=== PATIENT | female | born 1990 | race Hispanic/Latino ===

== ENCOUNTER 2019-10-23 11:40 | Outpatient (CLI) | payer BC, SELFPAY ==
[2019-10-23 15:16] LABS: Rheumatoid Factor 14.3 IU/ML (<12)
[2019-10-23 15:20] LABS: CRP 5.6 mg/dL (<1.0); Creatine Kinase 76 U/L (30-135); Lactate Dehydrogenase 346 U/L (313-618)
[2019-10-23 15:30] LABS: Erythrocyte Sedimentation Rate 28 mm/hr (0-20)
[2019-10-25 12:11] LABS: Aldolase 3.3 U/L (<=8.1)
[2019-10-26 10:46] LABS: Anti Cyclic Citrullinated Pept <16 Units (<20)
== END 2019-10-23 11:41 | disposition home or self-care (01) ==
PROVIDERS: Visit Provider Internal Medicine
DX: M19.90 Unspecified osteoarthritis, unspecified site (principal)
CPT/HCPCS: 36415; 82085; 82550; 83615; 85652; 86140; 86200; 86430

== ENCOUNTER 2019-10-23 13:09 | Outpatient (CLI) | payer BC, SELFPAY ==
--- NOTE | ~2019-10-23 | XR_ITS ---
XR hand BI arthritis min 3V 10/23/2019 13:32 Indication: Bilateral hand osteoarthritis Procedure: 4 views of each hand Comparison: No prior studies for comparison. Findings: There are mild degenerative changes of the right first MCP and IP joints. There is mild ost eoarthritis of the left MCP joint. Normal mineralization. No fracture or traumatic malalignment. No e rosive changes. No foreign bodies. Impression: 1: Mild polyarticular osteoarthritis. Reviewed, dictated and finalized at location A. L INSTALLER Impression: 1: Mild polyarticular osteoarthritis.
--- NOTE | ~2019-10-23 | XR_ITS ---
XR sacroiliac joints min 3V 10/23/2019 13:32 Indication: Osteoarthritis. Sacroiliac joint pain. Procedure: 3 views of the sacroiliac joints Comparison: No prior studies for comparison. Findings: Sacroiliac joints are symmetric. Sacral foramen are symmetric. No significant degenerative joint disease. Visualized aspects of the lower lumbar spine are unremarkable. Impression: 1: No significant abnormality of the sacroiliac joints. Reviewed, dictated and finalized at location A. PRODUCTION FIELD SUPERVISOR Impression: 1: No significant abnormality of the sacroiliac joints.
--- NOTE | ~2019-10-23 | XR_ITS ---
XR foot RT standing 2V, XR foot LT standing 2V 10/23/2019 13:32 Indication: Osteoarthritis. Foot pain. Procedure: 2 views of each foot Comparison: No prior studies for comparison. Findings: There is osteoarthritis of the first MTP joints bilaterally, right greater than left. Mild right hallux valgus. Lisfranc joint intact bilaterally. No acute fracture or traumatic malalignment. No focal soft tissue abnormality. No foreign bodies. 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 Reviewed, dictated and finalized at location A. 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
== END 2019-10-23 13:10 | disposition home or self-care (01) ==
LOC: ANHIMG 13:13
PROVIDERS: Visit Provider Internal Medicine
DX: M19.90 Unspecified osteoarthritis, unspecified site (principal); M19.042 Primary osteoarthritis, left hand; M19.041 Primary osteoarthritis, right hand; M19.072 Primary osteoarthritis, left ankle and foot; M19.071 Primary osteoarthritis, right ankle and foot
CPT/HCPCS: 72202; 73130; 73620

== ENCOUNTER 2019-12-03 10:07 | Outpatient (CLI) | payer BC, SELFPAY ==
[2019-12-03 12:30] LABS: CRP < 0.5 mg/dL (<1.0)
[2019-12-03 12:44] LABS: Erythrocyte Sedimentation Rate 35 mm/hr (0-20)
[2019-12-07 10:01] LABS: ANCA Screen Negative (Negative); Myeloperoxidase Ab <1.0 AI (<1.0); Proteinase-3 Ab <1.0 AI (<1.0); S cerevisiae Ab (IgA) 4.8 U (<=20.0); S cerevisiae Ab (IgG) 11.5 U (<=20.0)
== END 2019-12-03 10:08 | disposition home or self-care (01) ==
PROVIDERS: Visit Provider Internal Medicine
DX: M19.90 Unspecified osteoarthritis, unspecified site (principal)
CPT/HCPCS: 36415; 85652; 86021; 86140; 86671

== ENCOUNTER 2024-12-11 08:50 | Outpatient (CLI) | payer BC, SELFPAY ==
--- NOTE | ~2024-12-11 | CT_ITS ---
Non-contrast Head CT History: Migraine Technique: Axial non-contrast imaging of the brain was performed. Dose reduction technique was used on this scan by utilizing automated exposure control and iterative reconstruction technique. The dose -length product (DLP) was 645.69 mGy-cm. Findings: There is no evidence of intracranial hemorrhage, mass lesion, or acute infarct. Brain par enchyma appears normal. The ventricles and subarachnoid spaces are normal in size. The calvarium ap pears normal. The visualized paranasal sinuses and mastoid air cells are clear. Impression: No significant abnormality seen. Reviewed, dictated and finalized at location . Impression: No significant abnormality seen.
== END 2024-12-11 08:51 | disposition home or self-care (01) ==
PROVIDERS: PCP Nurse Practitioner Family; Visit Provider Nurse Practitioner Family
DX: G43.909 Migraine, unspecified, not intractable, without status migrainosus (principal); R26.89 Other abnormalities of gait and mobility; H53.2 Diplopia
CPT/HCPCS: 70450

== ENCOUNTER 2024-12-11 09:12 | Outpatient (CLI) | payer BC, SELFPAY ==
--- OUTSIDE RECORDS SUMMARY | 2024-12-11 09:54 | XMS_ITS | Clinical Summary ---
Author Organization [facility] Address [address] [place] [address] Care Team Providers Care Casing Worker Name Role Phone Mariposa Honyecutt TRAFFIC LINE PAINTER Primary Care Provider Unavaila ble Allergies No known active allergies Medications pantoprazole EC 20 MG tabletIndications:G astroesophageal reflux disease without esophagitis Take 1 tablet (20 mg total) by mouth daily. 30 tablet 1 9 Active fluticasone propionate (FLONASE) 50 MCG/ACT nasal sprayIndications:Dy sfunction of both eustachian tubes 2 sprays by Nasal route daily. 9 Active magnesium 250 MG tabletIndications:C hronic nonintractable headache, unspecified headache type Take 1 tablet (250 mg total) by mouth daily. 30 tablet 9 Active Active Problems Problem Noted Date Diagnosed Date 40 weeks gestation of ([facility]) 2018 Vaginal delivery ([facility]) 03/30/2019 Arthralgia of both hands 03/30/2019 Fatigue, unspecified type 03/30/2019 Gastroesophageal reflux disease without esophagi tis 03/30/2019 Chronic abdominal pain 03/30/2019 Overview (03/30/2019): will try PPI and refer to GI if no improvment Dysfunction of both eustachian tubes 03/30/2019 Overview (03/30/2019): flonase and will refer to ENT if no improvement Chronic nonintractable headache, unspecified hea dache type 03/30/2019 Overview (03/30/2019): most likely due to stress no red flags Stress 03/30/2019 Overview (03/30/2019): encouraged her to try and start with 1-2 hours of relief from kids weekly to do something she enjoys: working out, friends need for decrease stress Group B streptococcal infection during ([facility]) 05/15/2018 Vitamin D deficiency 01/09/2018 Low vitamin D level 01/04/2018 Normal labor and delivery ([facility]) 03/26/2017 Immunizations Name Administration Dates Next Due Tdap (Generic) 09/08/2014 Family History Medical History Relation Comments Cancer Father Diabetes Father Hypertension Father Relation Status Comments Father Social History Tobacco Use Types Packs/Day Years Used Date Smoking Tobacco: Never Smokeless Tobacco: Never Alcohol Use Standard Drinks/Week Comments No 0 (1 standard drink = 0.6 oz pur e alcohol) AUDIT-C Answer Date Recorded Frequency of Alcohol Consumption Never 03/30/2019 Average Number of Drinks Not on file 019 Frequency of Binge Drinking Not on file 01/2019 PHQ-2 Answer Date Recorded PHQ-2 Score 0 09/04/2019 Comments No Sex and Gender Information Value Date Recorded Sex Assigned at Not on file Legal Sex Female 8:56 AM CDT Gender Identity Not on file Sexual Orientation Not on file Last Filed Vital Signs Vital Sign Reading Time Taken Comments Blood Pressure 116/64 03/30/2019 11:21 AM CDT Pulse 58 03/30/2019 11:21 AM CDT Temperature 36.8 C (98.3 F) 03/30/2019 11:21 AM CDT Respiratory Rate 14 03/30/2019 11:21 AM CDT Oxygen Saturation 99% 03/30/2019 11:21 AM CDT Inhaled Oxygen Concentration - - Weight 67.6 kg (149 lb) 03/30/2019 11:21 AM CDT Height 165.1 cm (5' 5 ) 03/30/2019 11:21 AM CDT Body Mass Index 24.79 03/30/2019 11:21 AM CDT Plan of Treatment Health Maintenance Due Date Last Done Comments Annual Physical 11/30/1991 Hepatitis C 2006 Hepatitis B Vaccines (1 of 3 - 19+ 3-dose series) 11/30/2007 Cervical Cancer Screening Pa p with HPV Testing (Age 30 to 64) Every 5 Years 2018 Cervical Cancer Screening Pa p Smear (Age 30 to 64) Every 3 Years 03/20/2023 03/20/2020 Cervical Cancer Screening with HPV 03/20/2023 COVID-19 Vaccine (2023-2 5 season) 2024 Influenza Adult (#1) 2024 DTaP, Tdap and Td Vaccines ( 2 - Td or Tdap) 09/08/2024 09/08/2014 HPV Vaccines Aged Out No longer eligi ble based on patient's age to complete this topic Meningococcal B Vaccine Aged Out No l onger eligible based on patient's age to complete this topic Meningococcal Vaccine Aged Out No unique vera eligible based on patient's age to complete this topic Pneumococcal Vaccine: Pediat rics (0 to 5 Years) and At-Risk Patients (6 to 64 Years) Aged Out No longer eligi ble based on patient's age to complete this topic RSV Immunizations Under 20 Months Aged Out No longer eligible based on patient's age to complete this topic Procedures Procedure Name Priority Date/Time Associated Diagnosis Comments OUTSIDE CYTOPATH CERV/VAG IN TERPRET (PAP) (SCAN ORDER) 03/20/2020 from Last 3 Months or Most Recently Relevant to Health Maintenance Results * PAP SMEAR (03/20/2020) 03/20/2020 [facility] Scanned SCANNING Final Resu lt from Last 3 Months or Most Recently Relevant to Health Maintenance Insurance [facility] Care Teams Casing Worker Relationship Specialty Start Date End Date Mariposa Honeycutt NP PCP - General NURSE PRACTITIONER 03/30/19
--- OUTSIDE RECORDS SUMMARY | 2024-12-11 09:54 | XMS_ITS | Referral Summary ---
Author Organization [facility] Address [address] [place] [address] Care Team Providers Care Wire Annealer Name Role Phone Quincy Suarez MD Primary Care Provider [phone] Allergies No known active allergies Medications vitamin ferrous fumarate-folic () 28 mg iron- 800 mcg tablet Take 1 tablet by mouth daily 30 tablet 11 3 Active cholecalciferol (VITAMIN D-3) 5,000 unit capsule Take one capsule daily with food. 30 capsule 7 3 Active ferrous fumarate-vitami n C 200 mg (65 mg iron)-25 mg tablet Take 1 tablet by mouth daily 30 tablet 11 3 Active docusate sodium (COLACE) 100 mg capsuleIndicati ons:constipatio n Take 1 capsule (100 mg total) by mouth 2 (two) times a day 60 capsule 11 3 Active acetaminophen (TYLENOL) 325 mg tablet Take 2 tabs orally every 4 hours as needed for pain 3 Active ibuprofen (ADVIL,MOTRIN) 200 mg tab/capIndicati ons:Pain Take 2 tabs orally every 4 hours as needed for pain. 3 Active hydrocortisone 2.5 % cream Apply topically 2 (two) times a day 30 g 3 Active butalbital-acet aminophen-caffe ine (ESGIC) 50-325-40 mg per tablet Take 1 tablet by mouth every 4 (four) hours as needed for headaches 30 tablet 3 Active Active Problems Problem Noted Date Diagnosed Date with 41 completed weeks gestation 03/27 Anemia affecting in first trimester Endocervical polyp 10/03/2022 Overview (10/03/2022): Residual, 2 small at NOB s/p removal earlier in year; plan recheck. Chronic migraine without aur a without status migrainosus, not intractable 11/12/2021 Vitamin D deficiency 01/09/2018 Low vitamin D level 01/04/2018 Resolved Problems Problem Noted Date Diagnosed Date Resolved Date Group B streptococcal infect ion during 05/15/2018 10/01/2022 Vaginal delivery 10/01/2022 40 weeks gestation of 10/01/2022 Social History Tobacco Use Types Packs/Day Years Used Date Smoking Tobacco: Never Smokeless Tobacco: Never Tobacco Cessation:Counseling Given: Not Answered Alcohol Use Standard Drinks/Week Comments Yes 0 (1 standard drink = 0.6 oz pur e alcohol) occasionally Social Connection and Isolat ion Panel [NHANES] Answer Date Recorded In a typical week, how many times do you talk on the phone with family, friends, or neighbors? More than three times a week 04/22/2023 How often do you get togethe r with friends or relatives? More than three times a week 04/22/2023 How often do you attend chur ch or adventism services? More than 4 times per year 04/22/2023 Do you belong to any clubs o r organizations such as jew groups, unions, fraternal or athletic groups, or school groups? No 04/22/2023 How often do you attend meet ings of the clubs or organizations you belong to? Never 04/22/2023 Are you , , di vorced, , never , or living with a partner? 04/22/2023 AUDIT-C Answer Date Recorded Q1: How often do you have a drink containing alcohol? Never 04/26/2023 Q2: How many drinks containi ng alcohol do you have on a typical day when you are drinking? Patient does not drink Q3: How often do you have si x or more drinks on one occasion? Never 04/26/2023 Overall Financial Resource Strain (CARDIA) Answe r Date Recorded How hard is it for you to pa y for the very basics like food, housing, medical care, and heating? Not hard at all 04/22/2023 PHQ-2 Answer Date Recorded PHQ-2 Total Score (If total score is 3 or more points, staff should administer the PHQ-9) 0 04/22/2023 [facility] - Occupational Stress Questionnaire Answer Date Recorded Do you feel stress - tense, restless, nervous, or anxious, or unable to sleep at night because your mind is troubled all the time - these days? Not at all 04/22/2023 Exercise Vital Sign Answer Date Recorde d On average, how many days pe r week do you engage in moderate to strenuous exercise (like a brisk walk)? 4 days 04/22/2023 On average, how many minutes do you engage in exercise at this level? 120 min 04/22/2023 Hunger Vital Sign Answer Date Recorded Within the past 12 months, y ou worried that your food would run out before you got the money to buy more. Never true 04/22/20 23 Within the past 12 months, t he food you bought just didn't last and you didn't have money to get more. Never true 04/22/2023 PRAPARE - Transportation Answer Date Re corded In the past 12 months, has l ack of transportation kept you from medical appointments or from getting medications? No 03/27 In the past 12 months, has l ack of transportation kept you from meetings, work, or from getting things needed for daily living? No 04/22/2023 Housing Stability Vital Sign Answer Bunny e Recorded In the last 12 months, was t here a time when you were not able to pay the mortgage or rent on time? No 04/22/2023 In the last 12 months, how many places have you lived? 1 04/22/2023 In the last 12 months, was t here a time when you did not have a steady place to sleep or slept in a jail (including now)? No 04/22/2023 Personal Safety Answer Date Recorded Have you ever been in or are you currently in a harmful physical or emotional relationship or is someone making you feel afraid or unsafe? Denies 04/26/2023 Comments No Sex and Gender Information Value Date Recorded Sex Assigned at Not on file Legal Sex Female 8:34 PM EMERGENCY MEDICAL TECHNICIAN Gender Identity Not on file Sexual Orientation Not on file Last Filed Vital Signs Vital Sign Reading Time Taken Comments Blood Pressure 134/80 07/14/2023 12:39 PM CDT Pulse 84 07/14/2023 12:39 PM CDT Temperature 36.2 C (97.1 F) 04/26/2023 11:57 AM CDT Respiratory Rate 18 07/14/2023 12:39 PM CDT Oxygen Saturation 100% 07/14/2023 12:39 PM CDT Inhaled Oxygen Concentration - - Weight 68.9 kg (152 lb) 07/14/2023 12:39 PM CDT Height 165.1 cm (5' 5 ) 07/14/2023 12:39 PM CDT Body Mass Index 25.29 07/14/2023 12:39 PM CDT Plan of Treatment Not on file Procedures Procedure Name Priority Date/Time Associated Diagnosis Comments HEPATITIS C ANTIBODY Routine 10/05/2022 10:21 AM EMERGENCY MEDICAL TECHNICIAN Supervision of other normal , antepartum PAP AND HIGH RISK HPV, REFLEX TO GENOTYPING Routine 10/01/2022 3:29 PM EMERGENCY MEDICAL TECHNICIAN Supervision of other normal , antepartum 12 weeks gestation of from Last 3 Months or Most Recently Relevant to Health Maintenance Results * Hepatitis C antibody (10/05/2022 10:21 AM EMERGENCY MEDICAL TECHNICIAN) Hep C Ab Nonreactive Nonreactive [facility] ([facility]) Comment: Interpretive Data Nonreactive: Antibodies to HCV not detected. Does NOT exclude the possibility of recent exposure to HCV. Equivocal: Equivocal for HCV antibodies. Supplemental molecular testing will be automatically performed to determine infection status in accordance with current CDC screening recommendations. Reactive: Positive for HCV antibodies. This may represent current or past HCV infection. Supplemental molecular testing will be automatically performed to determine current infection status in accordance with current CDC screening recommendations. Interpretive data was last revised on 2019. Testing performed by: [facility], [address] [place] [address], [place]., [address] Blood 10/05/2022 10:2 1 AM EMERGENCY MEDICAL TECHNICIAN 10/05/2022 8:39 PM EMERGENCY MEDICAL TECHNICIAN Rickey Barraza MD LAB MICROBIOLOGY - GENERAL ORDERABLES Final Result Performing Organization Address City/[facility] Co de Phone Number [facility] [place]) 1 [facility] Department [place] [address] * Pap and High Risk HPV, reflex to Genotyping (10/01/2022 3:29 PM EMERGENCY MEDICAL TECHNICIAN) CLINICAL INFORMATION: [facility] Comment: LMP [facility] Comment:06-12-22 Previous Pap [employer] [facility] Comment:NONE GIVEN Prev. Bx [facility] Comment:NONE GIVEN SOURCE: [facility] Comment:Cervix, Endocervix Pap, specimen adequacy [facility] Comment: Satisfactory for evaluation. Endocervical/transformation zone component present. HPV interp [facility] Comment:Negative for intraep ithelial lesion or malignancy. [facility] Comment: PCM, CT(ASCP) CT Screening Location: [place] [address] [place] [address] Comment [facility] Comment: EXPLANATORY NOTE: The Pap is a screening test for cervical cancer. It is not a diagnostic test and is subject to false negative and false positive results. It is most reliable when a satisfactory sample, regularly obtained, is submitted with relevant clinical findings and history, and when the Pap result is evaluated along with historic and current clinical information. Human papillomavirus DNA, High Risk E6/E7 Not Detected NOT DETECTED [facility] [place] Comment: Not Detected High Risk HPV types (16,18,31,33,35,39,45,51,52, 56,58,59,66,68) were not detected. Other HPV types which cause anogenital lesions may be present. The significance of the other types of HPV in malignant processes has not been established. Methodology: Real Time PCR Thin prep (None) 10/01/2022 3:29 PM EMERGENCY MEDICAL TECHNICIAN 10/04/2022 7:46 AM EMERGENCY MEDICAL TECHNICIAN Rickey Barraza MD LAB CYTOLOGY ORDERABLES Fi nal Result Performing Organization Address City/[facility]/ZIP Co de Phone Number [facility] [address] [place] [address] [facility]/[place] [address] [address] [place] [address] from Last 3 Months or Most Recently Relevant to Health Maintenance Insurance [employer] [place] Advance Directives For more information, please contact: [phone] * Full Code (Latest Code Status on File) Date Activated Date Inactivated Comments 04/22/2023 6:27 AM 04/24/2023 8:07 PM Full CPR in case of cardiopulmonary arrest * Full Code Date Activated Date Inactivated Comments 06/19/2018 11:25 AM 06/21/2018 3:38 PM Full CPR in case of cardiopulmonary arrest Care Teams Wire Annealer Relationship Specialty Start Date End Date Quincy Suarez MD [address] [address] PCP - General 01/01/21
--- OUTSIDE RECORDS SUMMARY | 2024-12-11 09:54 | XMS_ITS | Clinical Summary ---
Author Organization [facility] Address [address] [place] [address] Care Team Providers Care Elevator Service Mechanic Name Role Phone Quincy Suarez MD Primary Care Provider [phone] Allergies No known active allergies Medications vitamin [...] delivery 10/01/2022 40 weeks gestation of 10/01/2022 Surgical History Surgery Date Site/Laterality Comments OTHER SURGICAL HISTORY 09/26/2013 - 09/25/2014 : VAGINAL DELIVERY 03/26/2017 BREAST SURGERY 01/24/2021 - 02/23/2021 Breast implants removed Medical History Medical History Date Comments Hx Other Medical ; Outc ome: 7lb(s) 10 oz Male Abnormal Pap smear of cervix 08/27/2016 LSI L Family History Medical History Relation Name Comments Breast cancer Maternal Great-Grandmother Relation Name Status Comments Maternal Great-Grandmother Social History Tobacco Use Types Packs/Day Years [...] often do you attend chur ch or yarsani services? More than 4 times per year 04/22/2023 Do you belong to any clubs o r organizations such as uatsdin groups, unions, fraternal or athletic groups, or [...] staff should administer the PHQ-9) 0 04/22/2023 [facility] - Occupational Stress Questionnaire Answer Date Recorded [...] place to sleep or slept in a alf (including now)? No 04/22/2023 Personal Safety Answer Date Recorded Have you ever been in or are you currently in a harmful physical or emotional relationship or is someone making you feel afraid or unsafe? Denies 04/26/2023 Comments No Sex and Gender Information Value Date Recorded Sex Assigned at Not on file Legal Sex Female 8:34 PM SIMULATION SPECIALIST Gender Identity Not on file Sexual Orientation Not on file Obstetrics History Para Term AB IAB SAB Ectopic Multiple Livin g Live Births 4 4 4 0 0 0 0 0 0 4 4 Date Outcome GA Total Labor Labor/2nd/3rd Weight Sex Type Anes PTL Love A1 A5 Name Clin 4 Term 39w 0d 3.402 kg (7 lb 8 oz) M Vag-Sp ont Livin g 2016 Term 3.544 kg (7 lb 13 oz) F Vag-Sp ont Epidur al Livin g 2017 Term 40w 6d 10h 16m 10h 01m/0h 15m 3.404 kg (7 lb 8.1 oz) F Vag-Sp ont None N Livin g 8 9 IDANIA BURGOS,Jimmy Murillo MD Complications:None Delivery Location:[facility] ([facility]) 2022 Term 41w 2d 4h 00m 3h 45m/0h 09m/0h 06m 4.035 kg (8 lb 14.3 oz) M Vagina l Epidur al N Livin g 8 9 IDANIA BURGOS,Jimmy Rudolph MD Complications:None Delivery Location:[facility] ([facility]) Last Filed Vital Signs Vital Sign Reading [...] 07/14/2023 12:39 PM CDT Plan of Treatment Health Maintenance Due Date Last Done Comments Varicella Vaccines (1 of 2 - 13+ 2-dose series) 2001 Hepatitis B Screening 2006 Regular Well Visit/Exam 18-64 03/20/2021 03/20/2020 Cervical Cancer Screening 10/01/20232022, 03/20/2020, 12/07/2017, Additional history exists Depression Screening 04/20/2024 04/20/2023, 04/20/2023, 04/18/2023, Additional history exists Influenza Vaccine (#1) 2024 DTaP/Tdap/Td Vaccine (2 - Td or Tdap) 09/08/2024 09/08/2014 Hepatitis C Screening Completed 10/05/2022 , 01/03/2018, 09/24/2016, Additional history exists HPV Vaccines Aged Out No longer eligi ble based on patient's age to complete this topic Pneumococcal vaccine <65 Aged Out No longer eligible based on patient's age to complete this topic Procedures Procedure Name Priority Date/Time Associated Diagnosis Comments HEPATITIS C ANTIBODY Routine 10/05/2022 10:21 AM SIMULATION SPECIALIST Supervision of other normal , antepartum PAP AND HIGH RISK HPV, REFLEX TO GENOTYPING Routine 10/01/2022 3:29 PM SIMULATION SPECIALIST Supervision of other normal , antepartum 12 weeks gestation of from Last 3 Months or Most Recently Relevant to Health Maintenance Results * Hepatitis C antibody (10/05/2022 10:21 AM SIMULATION SPECIALIST) Hep C Ab Nonreactive Nonreactive [facility] [...] last revised on 2019. Testing performed by: [facility], [address] [place] [address]., [id number] Blood 10/05/2022 10:2 1 AM SIMULATION SPECIALIST 10/05/2022 8:39 PM SIMULATION SPECIALIST us Rickey Barraza MD LAB MICROBIOLOGY - GENERAL ORDERABLES Final Result [facility] ([place]) 1 [facility] Department [place] [address] * Pap and High Risk HPV, reflex to Genotyping (10/01/2022 3:29 PM SIMULATION SPECIALIST) CLINICAL INFORMATION: [facility] Comment: LMP [facility] Comment:06-12-22 Previous Pap [facility] Comment:NONE GIVEN Prev. Bx [facility] Comment:NONE GIVEN SOURCE: [facility] Comment:Cervix, Endocervix Pap, specimen adequacy [facility] Comment: Satisfactory for evaluation. Endocervical/transformation zone component present. HPV interp [facility] Comment:Negative for intraep ithelial lesion or malignancy. Patient Financial Coordinator Que [facility] Comment: PCM, CT(ASCP) CT Screening Location: [place] [address] [place] [address] Comment [facility] Comment: EXPLANATORY NOTE: The Pap is [...] High Risk E6/E7 Not Detected NOT DETECTED [employer] [facility] Comment: Not Detected High Risk HPV types (16,18,31,33,35,39,45,51,52, 56,58,59,66,68) were not detected. Other HPV types which cause anogenital lesions may be present. The significance of the other types of HPV in malignant processes has not been established. Methodology: Real Time PCR Thin prep (None) 10/01/2022 3:29 PM SIMULATION SPECIALIST 10/04/2022 7:46 AM SIMULATION SPECIALIST Rickey Barraza MD LAB CYTOLOGY ORDERABLES Fi nal Result [facility] [address] [place] [address] [employer] [address] [facility] [place] [address] from Last 3 Months or Most Recently Relevant to Health Maintenance Insurance [employer] O[employer] [place] Advance Directives For more information, please contact: [phone] * Full Code (Latest Code Status on File) Date Activated Date Inactivated Comments 04/22/2023 6:27 AM 04/24/2023 8:07 PM Full CPR in case of cardiopulmonary arrest * Full Code Date Activated Date Inactivated Comments 06/19/2018 11:25 AM 06/21/2018 3:38 PM Full CPR in case of cardiopulmonary arrest Care Teams Elevator Service Mechanic Relationship Specialty Start Date End Date Quincy Suarez MD [address] [place] [address] PCP - General 01/01/21
--- OUTSIDE RECORDS SUMMARY | 2024-12-11 09:54 | XMS_ITS | Encounter Summary ---
Author Organization [facility] Address [address] [place] [address] Phone Care Team Providers Care Archaeology Professor Name Role Phone Quincy Suarez MD Primary Care Provider [phone] Jocelyn Ellis APRN, FIRST RESPONDER Unavailable [phone] Reason for Visit * Reason Comments Medication Refill Encounter Details Date Type Department Care Team (Late st Contact Info) Description 10/20/2021 Refill [facility] [address] [place] [id number] Quincy Suarez MD [address] [place] [address] Medication Refill Social History Tobacco Use Types Packs/Day Years Used Date Smoking Tobacco: Former Smokeless Tobacco: Never Alcohol Use Standard Drinks/Week Comments No 0 (1 standard drink = 0.6 oz pur e alcohol) PHQ-2 Answer Date Recorded Total Score - Questions 1-9 0 07/27 Sexually Active Control Partners Comments Yes Male Comments No Sex and Gender Information Value Date Recorded Sex Assigned at Not on file Legal Sex Female 8:53 PM CDT Gender Identity Not on file Sexual Orientation Not on file documented as of this encounter Miscellaneous Notes * Telephone Encounter - Joanne Kruse RN - 10/20/2021 3:54 PM CST Medication failed the protocol, provider to review and approve the medication order if appropriate. Requested Prescriptions Pending Prescriptions Disp Refills ZOLMitriptan (ZOMIG) 2.5 MG Tablet [Pharmacy Med Name: ZOLMITRIPTAN 2.5 MG TABLET] 6 Tablet 3 Sig: TAKE 1 TABLET BY MOUTH NEEDED FOR MIGRAINE. MAY REPEAT IN 2 HOURS IF NOT GONE. MAX 4 IN 24 HOURS. Not Delegated - Serotonin Agonists (Oral and Nasal) Protocol Failed - 10/20/2021 3:28 PM Failed - This refill cannot be delegated; check utilization no more than 9 doses per month Passed - Visit with relevant provider in past 24 months or upcoming 90 days Recent Visits Date Type Provider Dept 08/03/21 Office Visit Quincy Suarez MD [facility] 11/05/20 Office Visit Quincy Suarez MD [facility] 08/05/20 Office Visit Quincy Suarez MD [facility] Showing recent visits within past 730 days and meeting all other requirements Future Appointments No visits were found meeting these conditions. Showing future appointments within next 90 days and meeting all other requirements Passed - No documented Systolic BP > 200 within past 3 months Passed - Number of active Serotonergic medications less than 3 NNA INSTALLER * Telephone Encounter - Ricardo Martinez RN - 10/20/2021 3:25 PM CST Patient calling back. States she needs medication sent to pharmacy as soon as possible. States she has a headache and is in pain. NNA INSTALLER * Telephone Encounter - Adriana Duke RN - 10/20/2021 11:35 AM ANTENNA INSTALLER Patient calling to verify refill request received for zomig 2.5 mg tablets Asking if provider would add refills to rx so does not have to call every month Advised request received from pharmacy, will request refills be added to RX. Will be up to provider rx already pending NNA INSTALLER documented in this encounter Plan of Treatment Not on file documented as of this encounter Visit Diagnoses Not on filedocumented in this encounter Additional Health Concerns Assessment Noted Time PHQ-9 Depression Total Score: 0 08/05/20 10:40 AM ANTENNA INSTALLER documented as of this encounter Care Teams Archaeology Professor Relationship Specialty Start Date End Date Quincy Suarez MD PCP - General Family Medicine 07/30/20 Jocelyn Ellis, DIRECTOR OF MEDICARE, FIRST RESPONDER Certified Nurse Practitioner 06/08/22 documented as of this encounter
--- OUTSIDE RECORDS SUMMARY | 2024-12-11 09:54 | XMS_ITS | Clinical Summary ---
Author Organization [facility] Address [address] [place] [address] Phone Care Team Providers Care Production Tester Name Role Phone Quincy Suarez MD Primary Care Provider [phone] Jocelyn Ellis APRN, GATE KEEPER Unavailable [phone] Allergies No known active allergies Medications No known medications Active Problems Problem Noted Date Diagnosed Date Chronic migraine without aur a without status migrainosus, not intractable 11/12/2021 Arthralgia of both hands 03/30/2019 Chronic abdominal pain 03/30/2019 Overview (08/05/2020): will try PPI and refer to GI if no improvment Vitamin D deficiency 01/09/2018 Normal labor and delivery 03/26/2017 Immunizations Immunization Administration Dates Next Due MMR Vaccine 03/27/2017() TDAP Vaccine 03/27/2017(),09/08/2014 Family History Medical History Relation Name Comments Hypertension Father Prostate Cancer Father No Known Problems Mother Colon Cancer Other Relation Name Status Comments Father Alive Mother Alive Other Other cousin and moth ers aunt Social History Tobacco Use Types Packs/Day Years Used Date Smoking Tobacco: Former Smokeless Tobacco: Never Tobacco Cessation:Counseling Given: Yes Alcohol Use Standard Drinks/Week Comments No 0 (1 standard drink = 0.6 oz pur e alcohol) PHQ-2 Answer Date Recorded Total Score - Questions 1-9 0 05/27 Sexually Active Control Partners Comments Yes Male Comments No Sex and Gender Information Value Date Recorded Sex Assigned at Not on file Legal Sex Female 8:53 PM CDT Gender Identity Not on file Sexual Orientation Not on file Last Filed Vital Signs Vital Sign Reading Time Taken Comments Blood Pressure 133/86 06/29/2022 12:02 PM CDT Pulse 66 06/29/2022 12:02 PM CDT Temperature 37 C (98.6 F) 06/29/2022 10:49 AM CDT Respiratory Rate 21 06/29/2022 12:02 PM CDT Oxygen Saturation 100% 06/29/2022 12:02 PM CDT Inhaled Oxygen Concentration - - Weight 65.9 kg (145 lb 3.2 oz) 06/16/2022 8:23 A M CDT Height 165.1 cm (5' 5 ) 06/16/2022 8:23 AM CDT Body Mass Index 24.16 06/16/2022 8:23 AM CDT Plan of Treatment Health Maintenance Due Date Last Done Comments Hepatitis C Virus (HCV) Screening 1988 Hepatitis B Immunization (1 of 3 - 19+ 3-dose series) 11/30/2007 Pap Smear 2009 Cervical Cancer Screening (CCS) 2018 HPV/Cotest 2018 Influenza Immunization (#1) 2024 SARS-COV-2 Immunization ( season) 2024 Respiratory Syncytial Virus (RSV) Immunization (Adult) (1 - 1-dose 75+ series) 11/30/2063 DTaP/Tdap/Td Immunization Discontinued 09/08/2014 Meningococcal Immunization (ACWY) Aged Out No longer eligible based on patient's age to complete this topic Pneumococcal Immunization Combined Aged Out No longer eligible b ased on patient's age to complete this topic Rotavirus Immunization Aged Out No lo nger eligible based on patient's age to complete this topic Insurance Advance Directives * Full Code (Latest Code Status on File) Date Activated Date Inactivated Comments 03/26/2017 11:21 AM 03/28/2017 3:07 PM CPR-Full Chelsie tment: FULL ARREST: Attempt Resuscitation/CPR wit intubation and mechanical ventilation. PRE-ARREST: Use entire range of life support measures to stabilize the patient. * Full Code Date Activated Date Inactivated Comments 03/25/2017 12:30 PM 03/25/2017 4:12 PM CPR-Full Tr eatment: FULL ARREST: Attempt Resuscitation/CPR wit intubation and mechanical ventilation. PRE-ARREST: Use entire range of life support measures to stabilize the patient. Care Teams Production Tester Relationship Specialty Start Date End Date Quincy Suarez MD PCP - General Family Medicine 07/30/20 Jocelyn Ellis, HEAVY EQUIPMENT OPERATOR/PAVER, GATE KEEPER Certified Nurse Practitioner 06/08/22
[2024-12-11 13:24] LABS: Eosinophils Absolute Auto 0.1 K/mm3 (0-0.3); Eosinophils Percent Auto 3.7 % (0-4.4); Hematocrit 39.3 % (37.0-47.0); Hemoglobin 12.6 g/dL (12.0-15.0); Lymphocytes Absolute Auto 1.29 K/mm3 (0.9-3.2); Lymphocytes Percent Auto 39.8 % (18.3-44.2); Mean Corpuscular HGB Conc 32.1 g/dl (32-36); Mean Corpuscular Hemoglobin 28.1 pg (26-34); Mean Corpuscular Volume 87.7 fl (80-100); Mean Platelet Volume 11.1 fl (7.4-10.4); Monocytes Absolute Auto 0.3 K/mm3 (0.1-0.6); Monocytes Percent Auto 8.6 % (2.6-8.5); Neutrophils Absolute Auto 1.6 K/mm3 (1.3-6.7); Neutrophils Percent Auto 47.9 % (45.5-73.1); Platelet Count Result 206 k/mm3 (150-375); Red Blood Count 4.48 M/mm3 (4.2-5.4); Red Cell Distribution Width 12.5 % (11.5-14.5); White Blood Count 3.2 K/mm3 (4.5-10.0)
[2024-12-11 13:35] LABS: Alanine Aminotransferase 22 U/L (6-35); Albumin Level 4.9 g/dL (3.5-5.1); Alkaline Phosphatase 65 U/L (38-126); Anion Gap 13 mmol/L (4-12); Aspartate Amino Transferase 35 U/L (14-36); Bilirubin,Total 0.3 mg/dL (0.2-1.3); Blood Urea Nitrogen 19 mg/dL (7-17); Calcium 9.3 mg/dL (8.4-10.2); Carbon Dioxide 24 mmol/L (22-30); Chloride 104 mmol/L (98-107); Cholesterol 174 mg/dL (0-200); Estimated Glomerular Filt Rate > 60; Glucose 85 mg/dL (65-110); HDL Direct 94 mg/dL; Sodium 141 mmol/L (137-145); Triglycerides 37 mg/dL (<150)
[2024-12-11 13:46] LABS: LDL Cholesterol Direct 50 mg/dL
[2024-12-11 14:25] LABS: Iron 88 ug/dL (37-170)
[2024-12-11 14:31] LABS: Erythrocyte Sedimentation Rate 28 mm/hr (0-20)
[2024-12-11 14:33] LABS: Percent Iron Saturation 18 % (20-50)
[2024-12-11 14:40] LABS: Vitamin B12 > 1000.0 pg/mL (239-931)
== END 2024-12-11 09:13 | disposition home or self-care (01) ==
LOC: ANHGOSHLAB 09:14
PROVIDERS: PCP Nurse Practitioner Family; Visit Provider Nurse Practitioner Family
DX: Z00.00 Encounter for general adult medical examination without abnormal findings (principal); E55.9 Vitamin D deficiency, unspecified; R26.89 Other abnormalities of gait and mobility; K21.9 Gastro-esophageal reflux disease without esophagitis; H69.90 Unspecified Eustachian tube disorder, unspecified ear; M25.50 Pain in unspecified joint; S03.00XA Dislocation of jaw, unspecified side, initial encounter; M54.2 Cervicalgia; G43.909 Migraine, unspecified, not intractable, without status migrainosus; H53.2 Diplopia; H53.10 Unspecified subjective visual disturbances; Z13.220 Encounter for screening for lipoid disorders; Z76.89 Persons encountering health services in other specified circumstances; Z86.2 Personal history of diseases of the blood and blood-forming organs and certain disorders involving the immune mechanism; X58.XXXA Exposure to other specified factors, initial encounter
CPT/HCPCS: 36415; 80053; 80061; 82306; 82607; 82728; 82746; 83540; 83550; 84443; 85025; 85652